=== PATIENT | male | born 1940 | race Caucasian/White ===

== ENCOUNTER 2017-03-24 01:29 | Inpatient (IN) | payer BC ==
[~2017-03-24] VITALS: Ht 170.2 cm; Wt 78.8 kg
[~2017-03-24 01:29] MED LIST: BENA20TA65 PO; HTN MED PO
[2017-03-24 01:34] VITALS: Ht 170.2 cm; Wt 78.8 kg
--- NOTE | 2017-03-24 02:23 | RADRPT ---
PROCEDURE: XR Chest. CLINICAL INDICATION: Chest pain TECHNIQUE: Single frontal view of the chest COMPARISON: 12/18/2011. FINDINGS: Mild cardiomegaly with atherosclerotic calcifications in the tortuous thoracic aorta. Increased elev ation of the right hemidiaphragm over the interval. Mild right lung base atelectasis. The lungs are otherwise clear. No signs of pleural fluid or pneumothorax are seen. The osseous structures and soft tissues are unremarkable. IMPRESSION: 1. Increase elevation right hemidiaphragm over the interval, with mild right lung base atelectasis. 2. Otherwise, no acute process in the chest. RPTAT: [facility] Physician Lizet Date Time Electronically viewed and signed by Physician Lizet on 03/24/2017 02:23 RS/
[2017-03-24] MEDS ORDERED: morphine 4 MG/ML VIAL IV STA (03:15)
[2017-03-24] MEDS ORDERED: ONDANSETRON 4 MG INJ IV PRN (03:30)
[2017-03-24] MEDS ORDERED: ASPIRIN 81 MG TAB PO ONE (03:30)
[2017-03-24] MEDS ORDERED: ACETAMINOPHEN 325 MG TAB PO PRN ×2 (03:30→21:00)
[2017-03-24] MEDS ORDERED: NITROGLYCERIN (SL) 0.4 MG TAB SL ONE (03:30)
[2017-03-24 03:36] VITALS: TEMP 98
--- NOTE | 2017-03-24 04:06 | ERD ---
ER Documentation Chief Complaint Chief Complaint BIBRA c/o CP. HPI 76-year-old male with a history of hypertension and high cholesterol presenting to the ER by ambulance complaining of chest pain that woke him up from sleep. He states the pain is aching in his right chest, radiating to his right shoulder. He had some associated dizziness but no diaphoresis, nausea, vomiting , or shortness of breath. The pain was initially a 6 out of 10. He was given aspirin and nitroglycerin in route with improvement of his pain to 3 out of 10. He denies any recent illnesses or cough. He is unsure when his last stress test was. ROS All systems reviewed and are negative except as per history of present illness. Medications Home Meds Reported Medications Benazepril Hcl* (Lotensin*) 20 Mg Tablet, 20 MG PO DAILY 11/30/11 [Htn Med] No Conflict Check, 1 TAB PO DAILY 11/28/11 Allergies Allergies: Coded Allergies: Penicillins (Verified Allergy, 11/28/11) PMhx/Soc History of Surgery: No Anesthesia Reaction: No Hx Neurological Disorder: Yes (CVA) Hx Respiratory Disorders: No Hx Cardiac Disorders: Yes (HTN) Hx Psychiatric Problems: No Hx Miscellaneous Medical Probl: No Hx Alcohol Use: Yes Hx Substance Use: No Hx Tobacco Use: No Smoking Status: Never smoker FmHx Family History: No diabetes Physical Exam Vitals Vital Signs Date Time Temp Pulse Resp B/P Pulse Ox O2 Delivery O2 Flow Rate FiO2 03/24/17 03:36 98.0 64 20 141/86 97 Room Air 03/24/17 01:34 98.3 62 18 210/97 95 Physical Exam Const: Well-developed, well-nourished, no apparent distress. Head: Atraumatic Eyes: Normal Conjunctiva ENT: Normal External Ears, Nose and Mouth. No JVD Neck: Full range of motion..~ No meningismus. Resp: Clear to auscultation bilaterally Cardio: Regular rate and rhythm, no murmurs. 2+ distal pulses in all 4 extremities Abd: Soft, non tender, non distended. Normal bowel sounds Skin: No petechiae or rashes Back: No midline or flank tenderness Ext: No cyanosis, or edema Neur: Awake and alert, oriented 3, strength and sensations intact in all 4 extremities, normal gait Psych: Normal Mood and Affect Result Diagram: 03/24/17 0145 03/24/17 014 Results 24 hrs Laboratory Tests Test 03/24/17 01:45 White Blood Count 7.610^3/ul Red Blood Count 5.1110^6/ul Hemoglobin 14.8g/dl Hematocrit 45.6% Mean Corpuscular Volume 89.2fl Mean Corpuscular Hemoglobin 29.0pg Mean Corpuscular Hemoglobin Concent 32.5g/dl Red Cell Distribution Width 13.2% Platelet Count 75473^3/UL Mean Platelet Volume 10.9fl Neutrophils % 34.0% Lymphocytes % 51.1% Monocytes % 9.1% Eosinophils % 5.0% Basophils % 0.5% Nucleated Red Blood Cells % 0.0/100WBC Neutrophils # 2.610^3/ul Lymphocytes # 3.910^3/ul Monocytes # 0.710^3/ul Eosinophils # 0.410^3/ul Basophils # 0.010^3/ul Nucleated Red Blood Cells # 0.010^3/ul Sodium Level 144mmol/L Potassium Level 3.9mmol/L Chloride Level 108mmol/L Carbon Dioxide Level 25mmol/L Anion Gap 15 Blood Urea Nitrogen 16mg/dl Creatinine 1.02mg/dl Glucose Level 117mg/dl Calcium Level 8.5mg/dl Troponin I < 0.012ng/ml Current Medications Medications (Trade) Dose Ordered Sig/Silviano Route PRN Reason Start Time Stop Time Status Last Admin Dose Admin Aspirin (Aspirin) 162 mg ONCE ONCE PO 03/24/17 03:30 03/24/17 03:30 DC Morphine Sulfate (morphine) 4 mg ONCE STAT IV 03/24/17 03:15 03/24/17 03:16 DC 03/24/17 03:35 Nitroglycerin (Nitroglycerin (Sl Tab) 0.4 Mg) 1 tab ONCE ONCE SL 03/24/17 03:30 03/24/17 03:31 DC 03/24/17 03:20 Ondansetron HCl (Zofran Inj) 4 mg ER BRIDGE PRN IV NAUSEA AND/OR VOMITING 03/24/17 03:30 03/25/17 03:29 Acetaminophen (Tylenol Tab) 650 mg ER BRIDGE PRN PO MILD PAIN/FEVER 03/24/17 03:30 03/25/17 03:29 Procedures/MDM EMERGENT LABS AND DIAGNOSTIC STUDIES: Lab Results above were reviewed and interpreted by me. CBC unremarkable BMP unremarkable Troponin within normal limits 12-lead EKG was interpreted by Violet Figueroa MD: Normal Sinus Rhythm Normal axis Normal intervals No acute ST or T wave changes suggestive of acute ischemia or STEMI. Radiology Results as interpreted by Radiology below were reviewed by SKrissy Figueroa MD: Chest x-ray shows no acute abnormalities Initial Nursing notes reviewed. Previous Medical Records requested via the Electronic Health Record. EMERGENCY DEPARTMENT COURSE / MEDICAL DECISION MAKING: Patient's symptoms are concerning for cardiac cause will require inpatient workup and continuous monitoring. Initial EKG and troponin are normal. Aspirin was given in the field. His blood pressure was noted to be significantly elevated, however my concern for hypertensive emergency is lower. I have a lower suspicion for pneumothorax, PE, aortic dissection, pneumonia, or acute surgical abdomen. Nitro and morphine were given here with improvement of his pain. I do not believe the patient is safe for discharge at this time and will need further workup for ACS. Further w/u for ischemia, arrhythmia, PE or dissection will be deferred to the inpatient team. Accepting Care Team: Current data and ongoing care discussed. Time: Time of admission Primary Provider: Rachel Departure Diagnosis: Primary Impression: Chest pain Chest pain type: unspecified Qualified Code: R07.9 - Chest pain, unspecified type Additional Impression: Hypertensive urgency Condition: BREE Marino MD Mar 24, 2017 04:06
[2017-03-24] MEDS ORDERED: BENA40TA41 PO (07:59)
[2017-03-24] MEDS ORDERED: HYDR-3672 PO (07:59)
[2017-03-24] MEDS ORDERED: METO-319 PO (07:59)
[2017-03-24] MEDS ORDERED: CRES10 PO (08:00)
[2017-03-24] MEDS ORDERED: UBID100C24 PO (08:00)
[2017-03-24] MEDS ORDERED: ASPI-664 PO (08:00)
[2017-03-24] MEDS ORDERED: DOXA1TAB PO (08:00)
[2017-03-24 12:08] VITALS: BP 202/82; RESP 18
[2017-03-24 12:28] VITALS: PULSE 62
--- NOTE | 2017-03-24 12:34 | HP ---
Date/Time of Note Date/Time of Note DATE: 03/24/17 TIME: 12:21 Assessment/Plan VTE Prophylaxis VTE Prophylaxis Intervention: SCD's Lines/Catheters IV Catheter Type (from Nrs): Saline Lock Assessment/Plan Assessment/Plan -Chest pain, rule out acute coronary syndrome. Cardiac enzymes every 8 hours 3 and 12-lead EKG. Dr. Karimi is asked to see patient in cardiology consultation. -Hypertension urgency, continue benazepril, hydralazine as needed for systolic blood pressure above 170. -History of stroke in 2011, continue aspirin -Hyperlipidemia, check lipid panel, continue Crestor Obtaining full medication list from patient's pharmacy. Further recommendations based on clinical course, plan of care discussed with Dr. Liu. HPI/ROS Admit Date/Time Admit Date/Time Mar 24, 2017 at 03:27 Hx of Present Illness The patient is a very pleasant 76-year-old gentleman with past medical history positive for stroke in 2011 with no residual weakness, hypertension, hyperlipidemia. Patient stated that he might forget to take his blood pressure medication over the weekend because he was watching some sports series. He developed right chest pain with radiation to the right shoulder and right neck and decided to seek care in the emergency room. Patient was brought to the hospital by ambulance noted to have elevated blood pressure on admission . Initial chest pain was 6 out of 10. Patient was given aspirin and nitroglycerin with improvement in chest pain. Patient complains of dizziness on admission. Patient denies any nausea vomiting denies diarrhea denies shortness of breath, patient denies any fever chills denies any cough, denies sore throat. Initial troponin was negative. Patient as stated that he does not have a public health aides teacher, he usually follows with primary care physician Dr. Martini. Patient knows that he takes hydrochlorothiazide, metoprolol, benazepril, aspirin, and Crestor however does not remember dosages. Patient was given morphine in the emergency room and admitted for further evaluation and management. ROS 10 point review of system is negative unless what mentioned in HPI PMH/Family/Social Past Medical History Medical History: hypertension, other (CVA) Past Surgical History Past Surgical Hx: no surgical history Family History Significant Family History: no pertinent family hx Social History Alcohol Use: none Smoking Status: Never smoker Drug Use: none Exam/Review of Systems Vital Signs Vitals Vital Signs Date Time Temp Pulse Resp B/P Pulse Ox O2 Delivery O2 Flow Rate FiO2 03/24/17 12:08 97.8 63 18 202/82 96 03/24/17 09:03 Room Air Exam Constitutional: alert, oriented Head: normocephalic Neck: supple Respiratory: clear to auscultation Cardiovascular: nl pulses Gastrointestinal: non-tender, soft Musculoskeletal: nl extremities to inspection Extremities: normal pulses Neurological: QA SPECIALIST II-XII intact, nl mental status Skin: nl turgor Labs Result Diagram: 03/24/17 0145 03/24/17 0145 SYD SHRAPE Mar 24, 2017 12:32
--- NOTE | 2017-03-24 12:34 | HP ---
Date/Time of Note Date/Time of Note DATE: 03/24/17 TIME: 12:21 Assessment/Plan VTE Prophylaxis VTE Prophylaxis Intervention: SCD's Lines/Catheters IV Catheter Type (from Nrs): Saline Lock Assessment/Plan Assessment/Plan -Chest pain, rule out acute coronary syndrome. Cardiac enzymes every 8 hours 3 and 12-lead EKG. Dr. Karimi is asked to see patient in cardiology consultation. -Hypertension urgency, continue benazepril, hydralazine as needed for systolic blood pressure above 170. -History of stroke in 2011, continue aspirin -Hyperlipidemia, check lipid panel, continue Crestor Obtaining full medication list from patient's pharmacy. Further recommendations based on clinical course, plan of care discussed with Dr. Liu. HPI/ROS Admit Date/Time Admit Date/Time Mar 24, 2017 at 03:27 Hx of Present Illness The patient is a very pleasant 76-year-old gentleman with past medical history positive for stroke in 2011 with no residual weakness, hypertension, hyperlipidemia. Patient stated that he might forget to take his blood pressure medication over the weekend because he was watching some sports series. He developed right chest pain with radiation to the right shoulder and right neck and decided to seek care in the emergency room. Patient was brought to the hospital by ambulance noted to have elevated blood pressure on admission . Initial chest pain was 6 out of 10. Patient was given aspirin and nitroglycerin with improvement in chest pain. Patient complains of dizziness on admission. Patient denies any nausea vomiting denies diarrhea denies shortness of breath, patient denies any fever chills denies any cough, denies sore throat. Initial troponin was negative. Patient as stated that he does not have a medical lab specialist, he usually follows with primary care physician Dr. Martini. Patient knows that he takes hydrochlorothiazide, metoprolol, benazepril, aspirin, and Crestor however does not remember dosages. Patient was given morphine in the emergency room and admitted for further evaluation and management. ROS 10 point review of system is negative unless what mentioned in HPI PMH/Family/Social Past Medical History Medical History: hypertension, other (CVA) Past Surgical History Past Surgical Hx: no surgical history Family History Significant Family History: no pertinent family hx Social History Alcohol Use: none Smoking Status: Never smoker Drug Use: none Exam/Review of Systems Vital Signs Vitals Vital Signs Date Time Temp Pulse Resp B/P Pulse Ox O2 Delivery O2 Flow Rate FiO2 03/24/17 12:08 97.8 63 18 202/82 96 03/24/17 09:03 Room Air Exam Constitutional: alert, oriented Head: normocephalic Neck: supple Respiratory: clear to auscultation Cardiovascular: nl pulses Gastrointestinal: non-tender, soft Musculoskeletal: nl extremities to inspection Extremities: normal pulses Neurological: PHOTOENGRAVING HELPER II-XII intact, nl mental status Skin: nl turgor Labs Result Diagram: 03/24/17 0145 03/24/17 0145 SYD SHARPE Mar 24, 2017 12:32
[2017-03-24] MEDS ORDERED: BENAZEPRIL 40 MG TAB PO SCH (13:30)
--- NOTE | 2017-03-24 15:49 | CONS ---
Date/Time of Note Date/Time of Note DATE: 03/24/17 TIME: 15:45 Assessment/Plan Assessment/Plan Additional Assessment/Plan Hypertension urgency History of hypertension History of dyslipidemia History of CVA -Patient has been restarted on his antihypertensive medication regimen. Would give 1 dose of p.o. hydralazine now, change benazepril to twice daily dosing, restart hydrochlorothiazide. Check echocardiogram. As needed IV hydralazine. Initial 2 sets of cardiac enzymes are negative. Consultation Date/Type/Reason Admit Date/Time Mar 24, 2017 at 03:27 Type of Consultation: cv Reason for Consultation Hypertension management Hx of Present Illness This is a 76-year-old male past medical history of hypertension, dyslipidemia, CVA who presents with symptoms of uncontrolled blood pressure. Patient does admit to poor medication compliance over the weekend. He did have symptoms of dizziness and right-sided abdominal and chest discomfort. Dizziness symptoms are usually assigned for him that his blood pressure is not well controlled. Unfortunately his blood pressure machine at home had issues with his battery and was unable to check. He did initially have symptoms of gassy pain on the right side of his abdomen that radiate up to his right shoulder but has since resolved since last night. Denies exertional chest pain or shortness of breath. Denies any abdominal pain or nausea at the current time. 12 point review of systems was performed with all pertinent positives and negatives mentioned above and all else is negative Past Medical History Medical History: high cholesterol, hypertension, other (CVA) Past Surgical History Past Surgical Hx: no surgical history Social History Alcohol Use: rarely Smoking Status: Never smoker Drug Use: none Exam/Review of Systems Vital Signs Vitals Vital Signs Date Time Temp Pulse Resp B/P Pulse Ox O2 Delivery O2 Flow Rate FiO2 03/24/17 12:28 62 03/24/17 12:08 97.8 18 202/82 96 03/24/17 09:03 Room Air Exam No apparent distress Constitutional: alert, oriented Head: normocephalic Respiratory: clear to auscultation, normal air movement Cardiovascular: other (S1-S2 heard), regular rate and rhythm Gastrointestinal: bowel sounds, non-tender, soft Extremities: other (No edema) Results Result Diagram: 03/24/17 0145 03/24/17 0145 Results 24 hrs Laboratory Tests Test 03/24/17 01:45 03/24/17 08:03 White Blood Count 7.6 Red Blood Count 5.11 Hemoglobin 14.8 Hematocrit 45.6 Mean Corpuscular Volume 89.2 Mean Corpuscular Hemoglobin 29.0 Mean Corpuscular Hemoglobin Concent 32.5 Red Cell Distribution Width 13.2 Platelet Count 203 Mean Platelet Volume 10.9 H Neutrophils % 34.0 L Lymphocytes % 51.1 H Monocytes % 9.1 Eosinophils % 5.0 Basophils % 0.5 Nucleated Red Blood Cells % 0.0 Neutrophils # 2.6 Lymphocytes # 3.9 H Monocytes # 0.7 Eosinophils # 0.4 Basophils # 0.0 Nucleated Red Blood Cells # 0.0 Sodium Level 144 Potassium Level 3.9 Chloride Level 108 Carbon Dioxide Level 25 Anion Gap 15 Blood Urea Nitrogen 16 Creatinine 1.02 Glucose Level 117 Calcium Level 8.5 Troponin I < 0.012 < 0.012 Creatine Kinase 58 Creatine Kinase Index 2.0 Creatinine Kinase MB (Mass) 1.16 Medications Medications Current Medications Aspirin (Halfprin) 81 mg DAILY PO ; Start 03/25/17 at 09:00 Doxazosin Mesylate (Cardura) 1 mg HS PO ; Start 03/24/17 at 21:00 Hydralazine HCl (Apresoline) 50 mg QID PO ; Start 03/24/17 at 17:00 Metoprolol Succinate (Toprol Xl) 50 mg DAILY PO ; Start 03/25/17 at 09:00 Atorvastatin Calcium (Lipitor) 40 mg DAILY@21 PO ; Start 03/24/17 at 21:00 Benazepril HCl (Lotensin) 20 mg BID PO ; Start 03/24/17 at 21:00; Status UNV Hydralazine HCl (Apresoline) 50 mg 1542 ONCE PO ; Start 03/24/17 at 15:42; Stop 03/24/17 at 15:43; Status UNV Hydralazine HCl (Apresoline) 10 mg Q6H PRN IV sbp>170; Start 03/24/17 at 20:00 ; Status UNV Procedures Procedures ECG sinus rhythm, normal QRS duration, nonspecific ST abnormalities Pedro Karimi DO Mar 24, 2017 15:49
[2017-03-24 16:00] VITALS: PULSE 104
--- NOTE | 2017-03-24 16:55 | RADRPT ---
Echocardiogram Report Patient Name: KADEN MCCLURE Gender: Male Date: 1940 Study Date: 24-Mar-2017 Trumpet Player: Mikala Schrader RDCS Location: [facility] Ref. Physician: SYD SHARPE Quality: Adequate Procedures: Transthoracic echocardiogram with complete 2D, M-Mode, and doppler examination. Indications: Evaluate Left Ventricular function. 2D/M Mode Doppler Measurement Value Normal Ranges Measurement Value Normal Ranges LVIDd 2D 3.4 3.5 - 5.6 cm AV Peak Pablo 1.9 m/sec LVIDs 2D 2.3 2.1 - 4.1 cm AV Peak PG 14.0 mmHg FS 2D 33.7 % AI Peak PG 81.0 mmHg LVPWd 2D 1.2 0.6 - 1.1 cm AI Peak Pablo 4.5 m/sec IVSd 2D 1.8 0.6 - 1.1 cm AI PHT 515.0 msec IVS/LVPW 2D 1.4 LVOT Peak Pablo 1.6 m/sec AoR Diam 2D 2.8 2.0 - 3.7 cm LVOT Peak PG 11.0 mmHg LA/Ao 2D 1 0 - 1 MV E Peak Pablo 0.9 m/sec EDV 2D 40.7 cm3 MV A Peak Pablo 1.1 m/sec ESV 2D 11.9 cm3 MV E/A 0.8 LA Dimen 2D 4.0 2.3 - 4.0 cm MV Decel Time 261 msec MV E/A 0.8 TR Peak Pablo 2.8 m/sec TR Peak PG 31.0 mmHg RVSP 34.0 mmHg Findings Left Ventricle: Normal left ventricular systolic function. Normal left ventricular cavity size. Mild concentric left ventricular hypertrophy. Ejection fraction is visually estimated at 65 %. Tissue Doppler/Mitral Doppler indices are consistent with impaired relaxation (Stage I diastolic dysfunction). Right Ventricle: Normal right ventricular size. Normal right ventricular systolic function. Left Atrium: Upper limit of normal left atrial size. Right Atrium: The right atrium is normal in size. Mitral Valve: Normal appearance of the mitral valve. Mild mitral annular calcification. Trace mitral regurgitation. Aortic Valve: No hemodynamically significant aortic stenosis by doppler. Aortic cusps appear moderately calcified. Mild aortic valve regurgitation. Tricuspid Valve: Normal appearance and function of the tricuspid valve with trace physiologic regurgitation. Estimated peak PA systolic pressure 34 mmHg. Pulmonic Valve: Normal pulmonic valve appearance. Pericardium: Normal pericardium with no significant pericardial effusion. Aorta: Normal aortic root. IVC: Normal size and normal respiratory collapse consistent with normal right atrial pressure. Conclusions 1.Normal left ventricular systolic function. Normal left ventricular cavity size. Mild concentric left ventricular hypertrophy. Ejection fraction is visually estimated at 65 %. Tissue Doppler/Mitral Doppler indices are consistent with impaired relaxation (Stage I diastolic dysfunction). 2.Normal right ventricular size. Normal right ventricular systolic function. 3.Upper limit of normal left atrial size. 4.The right atrium is normal in size. 5.No hemodynamically significant aortic stenosis by doppler. Mild aortic valve regurgitation. 6.No significant valvular stenosis or regurgitation seen of remaining visualized valves. 7.Normal pericardium with no significant pericardial effusion. Electronically Signed By: Pedro Karimi 24-Mar-2017 16:55:16 -0700 Patient Name: KADEN MCCLURE Study Date: 24-Mar-2017 [id number]
--- NOTE | 2017-03-24 16:55 | RADRPT ---
Echocardiogram Report Patient Name: KADEN MCCLURE Gender: Male Date: 1940 Study Date: 24-Mar-2017 Rod Cup Filler: Mikala Schrader RDCS Location: [facility] Ref. Physician: SYD SHARPE Quality: Adequate Procedures: Transthoracic echocardiogram with complete 2D, M-Mode, and doppler examination. Indications: Evaluate Left Ventricular function. 2D/M Mode Doppler Measurement Value Normal Ranges Measurement Value Normal Ranges LVIDd 2D 3.4 3.5 - 5.6 cm AV Peak Pablo 1.9 m/sec LVIDs 2D 2.3 2.1 - 4.1 cm AV Peak PG 14.0 mmHg FS 2D 33.7 % AI Peak PG 81.0 mmHg LVPWd 2D 1.2 0.6 - 1.1 cm AI Peak Pablo 4.5 m/sec IVSd 2D 1.8 0.6 - 1.1 cm AI PHT 515.0 msec IVS/LVPW 2D 1.4 LVOT Peak Pablo 1.6 m/sec AoR Diam 2D 2.8 2.0 - 3.7 cm LVOT Peak PG 11.0 mmHg LA/Ao 2D 1 0 - 1 MV E Peak Pablo 0.9 m/sec EDV 2D 40.7 cm3 MV A Peak Pablo 1.1 m/sec ESV 2D 11.9 cm3 MV E/A 0.8 LA Dimen 2D 4.0 2.3 - 4.0 cm MV Decel Time 261 msec MV E/A 0.8 TR Peak Pablo 2.8 m/sec TR Peak PG 31.0 mmHg RVSP 34.0 mmHg Findings Left Ventricle: Normal left ventricular systolic function. Normal left ventricular cavity size. Mild concentric left ventricular hypertrophy. Ejection fraction is visually estimated at 65 %. Tissue Doppler/Mitral Doppler indices are consistent with impaired relaxation (Stage I diastolic dysfunction). Right Ventricle: Normal right ventricular size. Normal right ventricular systolic function. Left Atrium: Upper limit of normal left atrial size. Right Atrium: The right atrium is normal in size. Mitral Valve: Normal appearance of the mitral valve. Mild mitral annular calcification. Trace mitral regurgitation. Aortic Valve: No hemodynamically significant aortic stenosis by doppler. Aortic cusps appear moderately calcified. Mild aortic valve regurgitation. Tricuspid Valve: Normal appearance and function of the tricuspid valve with trace physiologic regurgitation. Estimated peak PA systolic pressure 34 mmHg. Pulmonic Valve: Normal pulmonic valve appearance. Pericardium: Normal pericardium with no significant pericardial effusion. Aorta: Normal aortic root. IVC: Normal size and normal respiratory collapse consistent with normal right atrial pressure. Conclusions 1.Normal left ventricular systolic function. Normal left ventricular cavity size. Mild concentric left ventricular hypertrophy. Ejection fraction is visually estimated at 65 %. Tissue Doppler/Mitral Doppler indices are consistent with impaired relaxation (Stage I diastolic dysfunction). 2.Normal right ventricular size. Normal right ventricular systolic function. 3.Upper limit of normal left atrial size. 4.The right atrium is normal in size. 5.No hemodynamically significant aortic stenosis by doppler. Mild aortic valve regurgitation. 6.No significant valvular stenosis or regurgitation seen of remaining visualized valves. 7.Normal pericardium with no significant pericardial effusion. Electronically Signed By: Pedro Karimi 24-Mar-2017 16:55:16 -0700 Patient Name: KADEN MCCLUER Study Date: 24-Mar-2017 [id number]
[2017-03-24] MEDS ORDERED: hydrALAzine 20 MG INJ IV PRN ×2 (18:41→20:00)
[2017-03-24 20:00] VITALS: BP 210/98; RESP 17
[2017-03-24 20:34] VITALS: PULSE 100
[2017-03-24] MEDS ORDERED: DOXAZOSIN 1 MG TAB PO SCH (21:00)
[2017-03-24] MEDS: ATORVASTATIN 40 MG TAB PO SCH ×2 (21:00→21:22)
[2017-03-24] MEDS ORDERED: BENAZEPRIL 20 MG TAB PO SCH (21:00)
[2017-03-25] VITALS (7 sets, daily range): BP systolic 129–174; BP diastolic 64–89; PULSE 95–108; RESP 17–18
[2017-03-25] MEDS ORDERED: METOPROLOL (XL) 50 MG TAB PO SCH ×2 (09:00)
[2017-03-25] MEDS ORDERED: ASPIRIN (EC) 81 MG TAB PO SCH (09:00)
[2017-03-25] MEDS ORDERED: HYDROCHLOROTHIAZIDE 25 MG TAB PO SCH (09:00)
--- NOTE | 2017-03-25 17:37 | DS ---
Date/Time of Note Date/Time of Note DATE: 03/25/17 TIME: 17:34 Discharge Summary Admission/Discharge Info Admit Date/Time Mar 24, 2017 at 03:27 Discharge Date/Time Mar 25, 2017 at 13:45 Hx of Present Illness The patient is a very pleasant 76-year-old gentleman with past medical history positive for stroke in 2011 with no residual weakness, hypertension, hyperlipidemia. Patient stated that he might forget to take his blood pressure medication over the weekend because he was watching some sports series. He developed right chest pain with radiation to the right shoulder and right neck and decided to seek care in the emergency room. Patient was brought to the hospital by ambulance noted to have elevated blood pressure on admission . Initial chest pain was 6 out of 10. Patient was given aspirin and nitroglycerin with improvement in chest pain. Patient complains of dizziness on admission. Patient denies any nausea vomiting denies diarrhea denies shortness of breath, patient denies any fever chills denies any cough, denies sore throat. Initial troponin was negative. 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 Martini. Patient knows that he takes hydrochlorothiazide, metoprolol, benazepril, aspirin, and Crestor however does not remember dosages. Patient was given morphine in the emergency room and admitted for further evaluation and management. Hospital Course Patient left AMA, prior to leaving AMA patient refused morning labs other diagnostic tests. -Chest pain, rule out acute coronary syndrome. Cardiac enzymes every 8 hours 3 and 12-lead EKG. Dr. Karimi is asked to see patient in cardiology consultation. -Hypertension urgency, continue benazepril, hydralazine as needed for systolic blood pressure above 170. -History of stroke in 2011, continue aspirin -Hyperlipidemia, check lipid panel, continue Crestor Home Meds Reported Medications Doxazosin Mesylate* (Doxazosin Mesylate*) 1 Mg Tablet, 1 MG PO HS, TAB 03/24/17 Ubidecarenone (Coq-10) 100 Mg Capsule, 100 MG PO DAILY, CAP 03/24/17 Aspirin (Low Dose Aspirin) 81 Mg Tablet., 81 MG PO DAILY, #30 TAB 03/24/17 Rosuvastatin Calcium* (Crestor*) 10 Mg Tablet, 10 MG PO QHS, #30 TAB 03/24/17 Hydralazine Hcl* (Hydralazine Hcl*) 50 Mg Tab, 50 MG PO QID, #120 TAB 03/24/17 Benazepril Hcl* (Benazepril Hcl*) 40 Mg Tablet, 40 MG PO DAILY, #30 TAB 03/24/17 Metoprolol Succinate* (Toprol XL*) 50 Mg Tab.er.24h, 50 MG PO DAILY, #30 TAB 03/24/17 Discontinued Reported Medications Benazepril Hcl* (Lotensin*) 20 Mg Tablet, 20 MG PO DAILY 11/30/11 [Htn Med] No Conflict Check, 1 TAB PO DAILY 11/28/11 Primary Care Provider MD ANNEMARIE Batres SVETLANA Mar 25, 2017 17:37
[2017-03-26] MEDS ORDERED: BENAZEPRIL 20 MG TAB PO SCH (09:00)
== END 2017-03-25 13:45 | disposition left against medical advice (07) | DRG 313 ==
LOC: E/R 01:29 → TEL 03:27
PROVIDERS: ADMIT Internal Medicine; ATTEND Internal Medicine
DX: R07.9 Chest pain, unspecified (principal); I10 Essential (primary) hypertension; Z86.73 Personal history of transient ischemic attack (TIA), and cerebral infarction without residual deficits; E78.5 Hyperlipidemia, unspecified; E78.00 Pure hypercholesterolemia, unspecified
CPT/HCPCS: 36415; 71010; 80048; 82550; 82553; 84484; 85025; 93005; 93306; 96374; J0360; J2270